=== PATIENT | female | born 1950 ===

== ENCOUNTER 2018-06-01 07:10 | Day surgery (SDC) | payer MEDICARE ==
[2018-06-01 07:54] VITALS: BMI 26.2
[2018-06-01] MEDS ORDERED: Lactated Ringer's 500 ML IV ONE (08:00)
[2018-06-01] MEDS ORDERED: Propofol 10 mg/ml Inj (20 ML) ONE (08:24)
[2018-06-01] MEDS ORDERED: Midazolam 2 MG/2 ML VIAL ONE (08:24)
[2018-06-01 09:06] VITALS: RESP 16; TEMP 97
[2018-06-01 09:35] VITALS: BP 105/55; PULSE 66; O2SAT 100
== END 2018-06-01 11:06 | disposition home or self-care (01) ==
LOC: H.ENDO 07:10
PROVIDERS: ATTEND Internal Medicine Gastroenterology
DX: D12.6 Benign neoplasm of colon, unspecified (principal); K55.20 Angiodysplasia of colon without hemorrhage; K63.89 Other specified diseases of intestine; K62.89 Other specified diseases of anus and rectum; K64.8 Other hemorrhoids; R19.5 Other fecal abnormalities
CPT/HCPCS: 45380; 45381; 88305; J2001; J2250; J2704; J7120